=== PATIENT | female | born 1940 | race Caucasian/White ===

== ENCOUNTER 2022-06-18 21:08 | Emergency (ER) | payer OTHER ==
[~2022-06-18] VITALS: Ht 167.6 cm; Wt 68.0 kg
[2022-06-18 21:23] VITALS: BP_SYST 195
--- NOTE | 2022-06-18 21:23 | NUR ---
PATIENT AWAITING BED PLACEMENT
--- NOTE | 2022-06-18 22:00 | NUR ---
PATIENT BROUGHT IN BLS FROM HOME([facility]) FOR LACERATION TO RIGHT FOOT CALLED IN BY STAFF. WHEN PATIENT ARRIVED NO LACERATION NOTED. PATIENT HAS CALLUS TO BOTTOM OF FOOT WITH CRACKED SKIN. OINTMENT NOTED TO BE PLACED ON TOP OF FOOT. PAIN 0/10. NOTIFIED.
--- NOTE | 2022-06-18 22:18 | NUR ---
ER Dr. CORREA at [facility] examining patient.
[2022-06-18] MEDS ORDERED: BACI15OI13 TP (22:19)
[2022-06-18 22:28] VITALS: BP_SYST 172
--- NOTE | 2022-06-18 22:28 | NUR ---
Patient given written and verbal discharge instructions and verbalizes understanding. ER MD discussed with patient the results and treatment provided. Patient in stable condition. ID arm band removed. Rx of BACITRACIN ZINC given. Patient educated on pain management and to follow up with PMD. Pain Scale 0/10 Opportunity for questions provided and answered. Medication side effect fact sheet provided.
== END 2022-06-18 22:28 | disposition home or self-care (01) ==
LOC: SED 21:08
DX: S90.811A Abrasion, right foot, initial encounter (principal); W26.8XXA Contact with other sharp object(s), not elsewhere classified, initial encounter; Y93.89 Activity, other specified; Y92.89 Other specified places as the place of occurrence of the external cause; Y99.8 Other external cause status; Z79.899 Other long term (current) drug therapy
CPT/HCPCS: 99283

== ENCOUNTER 2022-08-08 16:57 | Inpatient (IN) | payer OTHER ==
[~2022-08-08] VITALS: Ht 167.6 cm; Wt 77.1 kg
[~2022-08-08 16:57] MED LIST: BACI15OI13 TP
[2022-08-08 17:16] VITALS: BP_SYST 130
[2022-08-08] MEDS ORDERED: ONDANSETRON 4 MG ODT TAB PO ONE (17:30)
[2022-08-08 18:42] LABS: BASOPHILS # (AUTO) 0.1 K/uL (0.0-0.2); BASOPHILS % (AUTO) 0.6 % (0.0-2.0); EOSINOPHILS # (AUTO) 0.1 K/uL (0.0-0.4); EOSINOPHILS % (AUTO) 0.9 % (0.0-4.0); HEMATOCRIT 36.8 % (36-48); HEMOGLOBIN 12.9 g/dL (12.0-16.0); LYMPHOCYTES % (AUTO) 19.8 % (20.5-51.5); MEAN CORPUSCULAR HEMOGLOBIN 31 pg (27-31); MEAN CORPUSCULAR HGB CONC 35 % (32-36); MEAN CORPUSCULAR VOLUME 88 fL (79.0-98.0); MONOCYTES # (AUTO) 0.8 K/uL (0.0-1.0); MONOCYTES % (AUTO) 7.4 % (1.7-9.3); NEUTROPHILS # (AUTO) 7.4 K/uL (1.8-7.7); NEUTROPHILS % (AUTO) 71.3 % (40.0-70.0); PLATELET COUNT (AUTO) 226 K/uL (130-430); RED BLOOD CELL COUNT(AUTO) 4.16 MIL/uL (4.2-6.2); RED CELL DISTRIBUTION WIDTH 12.9 % (9.0-15.0); WHITE BLOOD COUNT (AUTO) 10.4 K/uL (4.8-10.8)
[2022-08-08] MEDS ORDERED: DEXAMETHASONE SOD PHOSPHATE 4 MG/ML VIAL IVP ONE (19:00)
[2022-08-08 19:30] LABS: ALANINE AMINOTRANSFERASE 15 U/L (12-78); ANION GAP 13 (5-15); ASPARTATE AMINOTRANSFERASE 15 U/L (10-37); CALCIUM 8.5 mg/dL (8.4-11.0); CHLORIDE 101 mmol/L (98-107); CREATININE 1.22 mg/dL (0.55-1.30); GLUCOSE 97 mg/dL (70-99); TOTAL BILIRUBIN 0.5 mg/dL (0.0-1.0); UREA NITROGEN, BLOOD 23 mg/dL (8-21)
[2022-08-08 19:33] LABS: AMYLASE 29 U/L (0-100); LIPASE 145 U/L (73-393)
[2022-08-08] MEDS ORDERED: AZITHROMYCIN 500 MG in NS 250 ML IV ONE (20:00)
[2022-08-08] MEDS ORDERED: cefTRIAXone 1 GM in D5W 50 ML IV ONE (20:00)
[2022-08-08] MEDS ORDERED: POTASSIUM CHLORIDE 20 MEQ/PKT PACKET PO ONE (20:00)
[2022-08-08] MEDS ORDERED: cefTRIAXone 1 GM VIAL ONE (20:07)
[2022-08-08] MEDS ORDERED: AZITHROMYCIN 500 MG/VIAL (ZITHROMAX) IV ONE (20:08)
[2022-08-08] MEDS ORDERED: VANCOMYCIN HCL 1,000 MG in NS 250 ML IV ONE (20:30)
[2022-08-08] MEDS ORDERED: PIPERACILLIN/TAZO 3.375 GM in NS 50 ML IV ONE (20:30)
[2022-08-08 20:33] LABS: C-REACTIVE PROTEIN QUANT 8.9 mg/dL (0-0.5)
[2022-08-08] MEDS ORDERED: VANCOMYCIN HCL 1000 MG/VIAL IV ONE (21:03)
[2022-08-08] MEDS ORDERED: PIPERACILLIN/TAZOBACTAM 3.375 GM/VIAL (ZOSYN) IV ONE (21:05)
[2022-08-08] MEDS ORDERED: DONE-51 PO (21:10)
[2022-08-08] MEDS ORDERED: TRAM50TA2 PO (21:10)
[2022-08-08] MEDS ORDERED: ZIT250 PO (21:10)
[2022-08-08] MEDS ORDERED: MEMA10TA56 PO (21:10)
[2022-08-08] MEDS ORDERED: ANAS1TAB51 PO (21:10)
[2022-08-08] MEDS ORDERED: CALC-1112 PO (21:10)
[2022-08-08] MEDS ORDERED: NEU300 PO (21:10)
[2022-08-08] MEDS ORDERED: DOCU-144 PO (21:10)
[2022-08-08] MEDS ORDERED: HYDR12.55 (21:10)
[2022-08-08] MEDS ORDERED: KETO60CR2 TP (21:10)
[2022-08-08] MEDS ORDERED: QUET100T34 PO (21:10)
[2022-08-08] MEDS ORDERED: MELA1TAB29 PO (21:10)
[2022-08-08 21:35] LABS: INR 1.1 (0.8-1.2); PROTHROMBIN TIME 10.9 SECS (9.5-12.5)
[2022-08-08 22:10] VITALS: BP_SYST 149
[2022-08-08] MEDS: PIPERACILLIN/TAZO 3.375 GM in NS 50 ML IV SCH (23:34)
[2022-08-09] MEDS ORDERED: MORPHINE 2 MG/ML INJ. SYRINGE IVP PRN (00:15)
[2022-08-09] MEDS ORDERED: HALOPERIDOL LACTATE 5 MG/ML VIAL IM PRN (00:15)
[2022-08-09] MEDS: MORPHINE 2 MG/ML INJ. SYRINGE IVP PRN ×2 (01:11→06:01)
[2022-08-09] MEDS ORDERED: PIPERACILLIN/TAZOBACTAM 3.375 GM/VIAL (ZOSYN) IV ONE (01:35)
[2022-08-09] MEDS: PIPERACILLIN/TAZO 3.375 GM in NS 50 ML IV SCH ×3 (06:00→17:31)
[2022-08-09 08:00] VITALS: BP_SYST 138
[2022-08-09] MEDS: ONDANSETRON HCL 4 MG/2 ML VIAL IVP PRN ×2 (11:00→17:53)
[2022-08-09] MEDS ORDERED: traMADol HCL HCL 50 MG TABLET (ULTRAM) PO PRN (11:45)
[2022-08-09] MEDS ORDERED: LORazepam 2 MG/ML VIAL IVP PRN (11:45)
[2022-08-09] MEDS ORDERED: DOCUSATE SODIUM 100 MG CAPSULE PO PRN (11:45)
[2022-08-09] MEDS ORDERED: ONDANSETRON HCL 4 MG/2 ML VIAL IVP PRN (11:45)
[2022-08-09 12:00] VITALS: BP_SYST 135
[2022-08-09 16:00] VITALS: BP_SYST 137
[2022-08-09] MEDS: ACETAMINOPHEN 325 MG TABLET PO PRN (17:53)
[2022-08-09 20:00] VITALS: BP_SYST 137
[2022-08-09] MEDS ORDERED: VANCOMYCIN HCL 1,000 MG in NS 250 ML IV SCH (21:00)
[2022-08-09] MEDS: CALCIUM CARBONATE/VITAMIN D3 1 TAB TABLET PO SCH (21:52)
[2022-08-09] MEDS: GABAPENTIN 300 MG CAPSULE PO SCH (22:08)
[2022-08-09] MEDS: MELATONIN 3 MG TABLET PO SCH (22:09)
[2022-08-09] MEDS: BACITRACIN ZINC 15 GM TOPICAL OINTMENT TP SCH (22:15)
[2022-08-10] VITALS (7 sets, daily range): BP systolic 106–152
[2022-08-10] MEDS: PIPERACILLIN/TAZO 3.375 GM in NS 50 ML IV SCH ×4 (01:48→17:54)
[2022-08-10 07:24] LABS: BASOPHILS % (AUTO) 0.2 % (0.0-2.0); HEMATOCRIT 39.8 % (36-48); HEMOGLOBIN 13.5 g/dL (12.0-16.0); LYMPHOCYTES # (AUTO) 1.4 K/uL (1.0-5.5); LYMPHOCYTES % (AUTO) 11.1 % (20.5-51.5); MEAN CORPUSCULAR HEMOGLOBIN 31 pg (27-31); MEAN CORPUSCULAR HGB CONC 34 % (32-36); MEAN CORPUSCULAR VOLUME 90 fL (79.0-98.0); MONOCYTES # (AUTO) 0.9 K/uL (0.0-1.0); MONOCYTES % (AUTO) 6.9 % (1.7-9.3); NEUTROPHILS # (AUTO) 10.5 K/uL (1.8-7.7); NEUTROPHILS % (AUTO) 81.8 % (40.0-70.0); PLATELET COUNT (AUTO) 244 K/uL (130-430); RED BLOOD CELL COUNT(AUTO) 4.43 MIL/uL (4.2-6.2); RED CELL DISTRIBUTION WIDTH 12.6 % (9.0-15.0); WHITE BLOOD COUNT (AUTO) 12.8 K/uL (4.8-10.8)
[2022-08-10 07:42] LABS: ANION GAP 12 (5-15); CALCIUM 8.5 mg/dL (8.4-11.0); CHLORIDE 100 mmol/L (98-107); CREATININE 1.66 mg/dL (0.55-1.30); GLUCOSE 95 mg/dL (70-99); UREA NITROGEN, BLOOD 25 mg/dL (8-21)
[2022-08-10] MEDS: KETOCONAZOLE 2%, 60 GM TOPICAL CREAM. (NIZORAL) TP SCH (09:00)
[2022-08-10] MEDS: BACITRACIN ZINC 15 GM TOPICAL OINTMENT TP SCH ×2 (09:00→21:00)
[2022-08-10] MEDS: ANASTROZOLE 1 MG TABLET (ARIMIDEX) PO SCH (09:52)
[2022-08-10] MEDS: CALCIUM CARBONATE/VITAMIN D3 1 TAB TABLET PO SCH ×2 (09:52→21:49)
[2022-08-10] MEDS: GABAPENTIN 300 MG CAPSULE PO SCH ×2 (09:53→21:50)
[2022-08-10] MEDS: MEMANTINE HCL 5 MG TABLET PO SCH (09:53)
[2022-08-10] MEDS: DONEPEZIL HCL 5 MG TABLET (ARICEPT) PO SCH (09:53)
[2022-08-10] MEDS: QUEtiapine FUMARATE 100 MG TABLET PO SCH (09:53)
[2022-08-10] MEDS: HYDROCHLOROTHIAZIDE 12.5 MG CAPSULE (HCTZ) PO SCH (10:03)
[2022-08-10] MEDS: DOXYCYCLINE HYCLATE 100 MG in D5W 100 ML IV SCH ×2 (10:25→21:49)
[2022-08-10] MEDS ORDERED: POTASSIUM CHLORIDE 20 MEQ TAB.PRT.SR PO ONE (17:45)
[2022-08-10] MEDS: ACETAMINOPHEN 325 MG TABLET PO PRN ×2 (18:13→21:51)
[2022-08-10] MEDS: MELATONIN 3 MG TABLET PO SCH (21:50)
[2022-08-11 00:17] VITALS: BP_SYST 102
[2022-08-11 00:40] VITALS: BP_SYST 124
[2022-08-11] MEDS: PIPERACILLIN/TAZO 3.375 GM in NS 50 ML IV SCH ×4 (00:42→17:42)
[2022-08-11 08:00] VITALS: BP_SYST 163
[2022-08-11 08:18] LABS: BASOPHILS % (AUTO) 0.3 % (0.0-2.0); EOSINOPHILS # (AUTO) 0.1 K/uL (0.0-0.4); EOSINOPHILS % (AUTO) 1.1 % (0.0-4.0); HEMATOCRIT 39.3 % (36-48); HEMOGLOBIN 13.3 g/dL (12.0-16.0); LYMPHOCYTES # (AUTO) 2.4 K/uL (1.0-5.5); LYMPHOCYTES % (AUTO) 28.2 % (20.5-51.5); MEAN CORPUSCULAR HEMOGLOBIN 30 pg (27-31); MEAN CORPUSCULAR HGB CONC 34 % (32-36); MEAN CORPUSCULAR VOLUME 90 fL (79.0-98.0); MONOCYTES # (AUTO) 0.8 K/uL (0.0-1.0); NEUTROPHILS # (AUTO) 5.3 K/uL (1.8-7.7); NEUTROPHILS % (AUTO) 61.4 % (40.0-70.0); PLATELET COUNT (AUTO) 238 K/uL (130-430); RED BLOOD CELL COUNT(AUTO) 4.39 MIL/uL (4.2-6.2); RED CELL DISTRIBUTION WIDTH 12.6 % (9.0-15.0); WHITE BLOOD COUNT (AUTO) 8.6 K/uL (4.8-10.8)
[2022-08-11 09:00] LABS: ALANINE AMINOTRANSFERASE 20 U/L (12-78); ALBUMIN 2.9 g/dL (3.4-4.8); ANION GAP 8 (5-15); ASPARTATE AMINOTRANSFERASE 22 U/L (10-37); CALCIUM 8.9 mg/dL (8.4-11.0); CHLORIDE 104 mmol/L (98-107); CREATININE 1.33 mg/dL (0.55-1.30); GLUCOSE 84 mg/dL (70-99); PHOSPHORUS 3.2 mg/dL (2.7-4.5); TOTAL BILIRUBIN 0.4 mg/dL (0.0-1.0); UREA NITROGEN, BLOOD 26 mg/dL (8-21)
[2022-08-11] MEDS: DONEPEZIL HCL 5 MG TABLET (ARICEPT) PO SCH (09:21)
[2022-08-11] MEDS: MEMANTINE HCL 5 MG TABLET PO SCH (09:21)
[2022-08-11] MEDS: CALCIUM CARBONATE/VITAMIN D3 1 TAB TABLET PO SCH ×2 (09:21→22:57)
[2022-08-11] MEDS: GABAPENTIN 300 MG CAPSULE PO SCH ×2 (09:21→22:57)
[2022-08-11] MEDS: ANASTROZOLE 1 MG TABLET (ARIMIDEX) PO SCH (09:21)
[2022-08-11] MEDS: QUEtiapine FUMARATE 100 MG TABLET PO SCH (09:22)
[2022-08-11] MEDS: HYDROCHLOROTHIAZIDE 12.5 MG CAPSULE (HCTZ) PO SCH (09:22)
[2022-08-11] MEDS: KETOCONAZOLE 2%, 60 GM TOPICAL CREAM. (NIZORAL) TP SCH (09:24)
[2022-08-11] MEDS: BACITRACIN ZINC 15 GM TOPICAL OINTMENT TP SCH ×2 (09:24→22:57)
[2022-08-11] MEDS: DOXYCYCLINE HYCLATE 100 MG in D5W 100 ML IV SCH ×2 (09:25→22:56)
[2022-08-11 12:09] VITALS: BP_SYST 98
[2022-08-11 16:16] VITALS: BP_SYST 120
[2022-08-11 20:00] VITALS: BP_SYST 120
[2022-08-11] MEDS ORDERED: MELATONIN 3 MG TABLET ONE ×2 (23:10→23:30)
[2022-08-11] MEDS: MELATONIN 3 MG TABLET PO SCH (23:35)
[2022-08-11] MEDS: ACETAMINOPHEN 325 MG TABLET PO PRN (23:35)
[2022-08-12] VITALS: BP_SYST 124
[2022-08-12] MEDS: PIPERACILLIN/TAZO 3.375 GM in NS 50 ML IV SCH ×4 (00:07→17:03)
[2022-08-12 06:19] LABS: BASOPHILS % (AUTO) 0.5 % (0.0-2.0); EOSINOPHILS # (AUTO) 0.2 K/uL (0.0-0.4); EOSINOPHILS % (AUTO) 2.4 % (0.0-4.0); HEMATOCRIT 37.5 % (36-48); HEMOGLOBIN 12.9 g/dL (12.0-16.0); LYMPHOCYTES # (AUTO) 2.7 K/uL (1.0-5.5); LYMPHOCYTES % (AUTO) 35.2 % (20.5-51.5); MEAN CORPUSCULAR HEMOGLOBIN 31 pg (27-31); MEAN CORPUSCULAR HGB CONC 35 % (32-36); MEAN CORPUSCULAR VOLUME 90 fL (79.0-98.0); MONOCYTES # (AUTO) 0.8 K/uL (0.0-1.0); MONOCYTES % (AUTO) 10.1 % (1.7-9.3); NEUTROPHILS % (AUTO) 51.8 % (40.0-70.0); PLATELET COUNT (AUTO) 238 K/uL (130-430); RED BLOOD CELL COUNT(AUTO) 4.18 MIL/uL (4.2-6.2); RED CELL DISTRIBUTION WIDTH 12.8 % (9.0-15.0); WHITE BLOOD COUNT (AUTO) 7.8 K/uL (4.8-10.8)
[2022-08-12 06:26] LABS: ALANINE AMINOTRANSFERASE 14 U/L (12-78); ALBUMIN 2.7 g/dL (3.4-4.8); ANION GAP 7 (5-15); ASPARTATE AMINOTRANSFERASE 12 U/L (10-37); CALCIUM 8.7 mg/dL (8.4-11.0); CHLORIDE 104 mmol/L (98-107); CREATININE 1.26 mg/dL (0.55-1.30); GLUCOSE 82 mg/dL (70-99); PHOSPHORUS 3.7 mg/dL (2.7-4.5); TOTAL BILIRUBIN 0.4 mg/dL (0.0-1.0); UREA NITROGEN, BLOOD 21 mg/dL (8-21)
[2022-08-12] MEDS: DOXYCYCLINE HYCLATE 100 MG in D5W 100 ML IV SCH ×2 (09:46→21:08)
[2022-08-12] MEDS: DONEPEZIL HCL 5 MG TABLET (ARICEPT) PO SCH (09:49)
[2022-08-12] MEDS: MEMANTINE HCL 5 MG TABLET PO SCH (09:49)
[2022-08-12] MEDS: GABAPENTIN 300 MG CAPSULE PO SCH ×2 (09:49→21:09)
[2022-08-12] MEDS: ANASTROZOLE 1 MG TABLET (ARIMIDEX) PO SCH (09:49)
[2022-08-12] MEDS: HYDROCHLOROTHIAZIDE 12.5 MG CAPSULE (HCTZ) PO SCH (09:50)
[2022-08-12] MEDS: CALCIUM CARBONATE/VITAMIN D3 1 TAB TABLET PO SCH ×2 (09:50→21:09)
[2022-08-12] MEDS: BACITRACIN ZINC 15 GM TOPICAL OINTMENT TP SCH ×2 (09:51→21:11)
[2022-08-12] MEDS: KETOCONAZOLE 2%, 60 GM TOPICAL CREAM. (NIZORAL) TP SCH (09:51)
[2022-08-12] MEDS ORDERED: POTASSIUM CHLORIDE 20 MEQ/PKT PACKET PO ONE (12:00)
[2022-08-12 13:08] VITALS: BP_SYST 118
[2022-08-12 17:39] VITALS: BP_SYST 106
[2022-08-12 20:00] VITALS: BP_SYST 141
[2022-08-12] MEDS: MELATONIN 3 MG TABLET PO SCH (21:09)
[2022-08-13] VITALS: BP_SYST 138
[2022-08-13] MEDS: PIPERACILLIN/TAZO 3.375 GM in NS 50 ML IV SCH ×6 (06:49→23:49)
[2022-08-13 07:30] LABS: BASOPHILS % (AUTO) 0.3 % (0.0-2.0); EOSINOPHILS # (AUTO) 0.3 K/uL (0.0-0.4); EOSINOPHILS % (AUTO) 3.1 % (0.0-4.0); HEMATOCRIT 38.3 % (36-48); HEMOGLOBIN 13.2 g/dL (12.0-16.0); LYMPHOCYTES # (AUTO) 2.4 K/uL (1.0-5.5); LYMPHOCYTES % (AUTO) 26.6 % (20.5-51.5); MEAN CORPUSCULAR HEMOGLOBIN 31 pg (27-31); MEAN CORPUSCULAR HGB CONC 34 % (32-36); MEAN CORPUSCULAR VOLUME 89 fL (79.0-98.0); MONOCYTES # (AUTO) 0.8 K/uL (0.0-1.0); MONOCYTES % (AUTO) 9.3 % (1.7-9.3); NEUTROPHILS # (AUTO) 5.4 K/uL (1.8-7.7); NEUTROPHILS % (AUTO) 60.7 % (40.0-70.0); PLATELET COUNT (AUTO) 229 K/uL (130-430); RED CELL DISTRIBUTION WIDTH 12.7 % (9.0-15.0); WHITE BLOOD COUNT (AUTO) 8.9 K/uL (4.8-10.8)
[2022-08-13 07:47] LABS: ANION GAP 11 (5-15); CALCIUM 8.8 mg/dL (8.4-11.0); CHLORIDE 105 mmol/L (98-107); CREATININE 0.98 mg/dL (0.55-1.30); GLUCOSE 93 mg/dL (70-99); UREA NITROGEN, BLOOD 19 mg/dL (8-21)
[2022-08-13 08:55] VITALS: BP_SYST 138
[2022-08-13] MEDS: DOXYCYCLINE HYCLATE 100 MG in D5W 100 ML IV SCH ×2 (09:28→22:49)
[2022-08-13] MEDS: CALCIUM CARBONATE/VITAMIN D3 1 TAB TABLET PO SCH ×2 (09:29→22:49)
[2022-08-13] MEDS: HYDROCHLOROTHIAZIDE 12.5 MG CAPSULE (HCTZ) PO SCH (09:29)
[2022-08-13] MEDS: DONEPEZIL HCL 5 MG TABLET (ARICEPT) PO SCH (09:30)
[2022-08-13] MEDS: GABAPENTIN 300 MG CAPSULE PO SCH ×2 (09:30→22:49)
[2022-08-13] MEDS: ANASTROZOLE 1 MG TABLET (ARIMIDEX) PO SCH (09:30)
[2022-08-13] MEDS: MEMANTINE HCL 5 MG TABLET PO SCH (09:30)
[2022-08-13 11:54] VITALS: BP_SYST 125
[2022-08-13] MEDS: KETOCONAZOLE 2%, 60 GM TOPICAL CREAM. (NIZORAL) TP SCH (12:43)
[2022-08-13] MEDS: BACITRACIN ZINC 15 GM TOPICAL OINTMENT TP SCH ×2 (12:43→22:50)
[2022-08-13 16:33] VITALS: BP_SYST 142
[2022-08-13 20:00] VITALS: BP_SYST 132
[2022-08-13] MEDS: MELATONIN 3 MG TABLET PO SCH (22:48)
[2022-08-14] VITALS: BP_SYST 124
[2022-08-14] MEDS: PIPERACILLIN/TAZO 3.375 GM in NS 50 ML IV SCH (06:16)
[2022-08-14] MEDS: ONDANSETRON HCL 4 MG/2 ML VIAL IVP PRN (06:22)
[2022-08-14 08:50] VITALS: BP_SYST 117
[2022-08-14 09:04] LABS: BASOPHILS % (AUTO) 0.5 % (0.0-2.0); EOSINOPHILS # (AUTO) 0.3 K/uL (0.0-0.4); EOSINOPHILS % (AUTO) 3.3 % (0.0-4.0); HEMATOCRIT 36.3 % (36-48); HEMOGLOBIN 12.4 g/dL (12.0-16.0); LYMPHOCYTES # (AUTO) 1.6 K/uL (1.0-5.5); LYMPHOCYTES % (AUTO) 20.8 % (20.5-51.5); MEAN CORPUSCULAR HEMOGLOBIN 30 pg (27-31); MEAN CORPUSCULAR HGB CONC 34 % (32-36); MEAN CORPUSCULAR VOLUME 89 fL (79.0-98.0); MONOCYTES # (AUTO) 0.8 K/uL (0.0-1.0); NEUTROPHILS # (AUTO) 5.2 K/uL (1.8-7.7); NEUTROPHILS % (AUTO) 65.4 % (40.0-70.0); PLATELET COUNT (AUTO) 231 K/uL (130-430); RED BLOOD CELL COUNT(AUTO) 4.07 MIL/uL (4.2-6.2); RED CELL DISTRIBUTION WIDTH 12.6 % (9.0-15.0); WHITE BLOOD COUNT (AUTO) 7.9 K/uL (4.8-10.8)
[2022-08-14 09:15] LABS: ANION GAP 10 (5-15); CALCIUM 8.4 mg/dL (8.4-11.0); CHLORIDE 101 mmol/L (98-107); CREATININE 1.19 mg/dL (0.55-1.30); GLUCOSE 148 mg/dL (70-99); UREA NITROGEN, BLOOD 18 mg/dL (8-21)
[2022-08-14] MEDS: DOXYCYCLINE HYCLATE 100 MG in D5W 100 ML IV SCH (09:21)
[2022-08-14] MEDS: GABAPENTIN 300 MG CAPSULE PO SCH (09:22)
[2022-08-14] MEDS: ANASTROZOLE 1 MG TABLET (ARIMIDEX) PO SCH (09:22)
[2022-08-14] MEDS: HYDROCHLOROTHIAZIDE 12.5 MG CAPSULE (HCTZ) PO SCH (09:22)
[2022-08-14] MEDS: MEMANTINE HCL 5 MG TABLET PO SCH (09:22)
[2022-08-14] MEDS: CALCIUM CARBONATE/VITAMIN D3 1 TAB TABLET PO SCH (09:23)
[2022-08-14] MEDS: BACITRACIN ZINC 15 GM TOPICAL OINTMENT TP SCH (09:23)
[2022-08-14] MEDS: DONEPEZIL HCL 5 MG TABLET (ARICEPT) PO SCH (09:23)
[2022-08-14] MEDS: KETOCONAZOLE 2%, 60 GM TOPICAL CREAM. (NIZORAL) TP SCH (09:24)
[2022-08-14] MEDS ORDERED: METR-343 PO (10:00)
[2022-08-14] MEDS ORDERED: LEVO250T73 PO (10:00)
[2022-08-14] MEDS ORDERED: VITD2000 PO (10:00)
[2022-08-14] MEDS ORDERED: levoFLOXacin 250 MG TABLET PO SCH (10:00)
[2022-08-14 12:11] VITALS: BP_SYST 128
[2022-08-14] MEDS ORDERED: metroNIDAZOLE 250 MG TABLET PO SCH (14:00)
== END 2022-08-14 12:35 | disposition home or self-care (01) | DRG 177 ==
LOC: SED 16:57 → STU 20:53
PROVIDERS: ADMIT Internal Medicine; ATTEND Internal Medicine
DX: U07.1 COVID-19 (principal); J12.82 Pneumonia due to coronavirus disease 2019; J96.00 Acute respiratory failure, unspecified whether with hypoxia or hypercapnia; K57.32 Diverticulitis of large intestine without perforation or abscess without bleeding; F02.80 Dementia in other diseases classified elsewhere, unspecified severity, without behavioral disturbance, psychotic disturbance, mood disturbance, and anxiety; G30.9 Alzheimer's disease, unspecified; E87.6 Hypokalemia; R79.89 Other specified abnormal findings of blood chemistry; E88.09 Other disorders of plasma-protein metabolism, not elsewhere classified; I10 Essential (primary) hypertension
CPT/HCPCS: 36415; 71045; 76376; 80048; 80053; 80202; 82150; 82550; 83605; 83615; 83690; 83735; 83880; 84100; 84484; 85025; 85384; 85610-TC; 85730-TC; 86140; 87040; 93005; 96365; 96368; 96375; 97116-GP; 97163-GP; 99285; G0378; J0456; J0696; J1100; J2060; J2270; J2405; J2543; J3370; J3490; J7050; J7060; Q0162